=== PATIENT | female | born 1995 | race Hispanic/Latino ===

== ENCOUNTER 2023-09-01 09:48 | Emergency (ER) | payer OTHER ==
[~2023-09-01] VITALS: Ht 160 cm; Wt 64.9 kg
[2023-09-01 09:52] VITALS: BP 129/69; PULSE 91; RESP 20
== END 2023-09-01 10:21 | disposition home or self-care (01) ==
LOC: EDBD 09:48 → EDH 09:48
DX: Z02.89 Encounter for other administrative examinations (principal); Z88.0 Allergy status to penicillin